=== PATIENT | female | born 1945 | race Two or more races ===

== ENCOUNTER 2024-01-29 11:10 | Emergency (ER) | payer MEDICARE, MEDICAID, SELFPAY ==
[2024-01-29 11:11] VITALS: BMI 29.7
[2024-01-29 11:14] VITALS: BP 117/71; PULSE 81; RESP 19; TEMP 37; O2SAT 98
--- NOTE | 2024-01-29 11:44 | EKG_ITS ---
[facility] Test Date: 2024-01-29 Pat Name: MICKEY BALLARD Department: Room: - Gender: Female Occasional Babysitter: : 1945 Requested By: Anjum Smith (DIRECTOR OF CORPORATE REAL ESTATE) Order Number: [id number] Reading MD: Anjum Smith (DIRECTOR OF CORPORATE REAL ESTATE) Measurements Intervals [place] Rate: 78 P: 35 FL: 149 QRS: -79 QRSD: 95 T: 15 QT: 380 QTc: 435 Interpretive Statements SINUS RHYTHM LEFT ANTERIOR FASCICULAR BLOCK [QRS AXIS <= -45, QR IN I, RS IN II] POSSIBLE ANTERIOR MYOCARDIAL INFARCTION , PROBABLY OLD [30 ms Q WAVE IN V3/V4, OR R < 0.2 mV IN V4] Compared to ECG 06/18/2022 19:19:27 Left anterior fascicular block now present Myocardial infarct finding now present Sinus tachycardia no longer present Indeterminate axis no longer present /store/S0/[id number].pdf
--- NOTE | 2024-01-29 11:44 | XR_ITS ---
Examination: CT cervical spine without contrast 2-D sagittal reconstructions 2-D coronal reconstructions 3-D reconstructions. Exam date and time:January 29, 2024 1259 hours INDICATIONS: Patient fell 3 days ago with injury to the neck, followed by right-sided neck pain CTDI:vol (mGy) 8.08 DLP: (mGycm) 185 Technique: Multiple 2 mm axial sections of the cervical spine have been obtained. The coronal and sagittal reconstructions have been obtained. 3-D reconstructions have been obtained. Low dose protocols were performed. One or more of the following dose reduction techniques were used; automated exposure control, adjustment of the mA and/or KV according to patient size, use of iterative reconstruction technique. Findings: Axial sections demonstrate intact base of the skull. C1 exhibit satisfactory relationship to the odontoid. No acute cervical vertebral body fracture seen. Alignment posterior spinous processes satisfactory. Impression: No acute cervical fracture.
--- NOTE | 2024-01-29 11:44 | XR_ITS ---
Examination: CT brain head without contrast. 2-D sagittal coronal reconstructions Date and time of exam:January 29, 2024 1259 hours INDICATIONS: Patient fell 3 days ago with injury to the head, head pain CTDI: vol (mGy):46.9 DLP: (mGycm):1000 Technique: Multiple CT axial sections of the brain have been obtained, 5 mm slice thickness. Contrast has not been administered. 2-D sagittal, coronal reconstructions have been obtained Low dose protocols were performed. One or more of the following dose reduction techniques were used; automated exposure control, adjustment of the mA and/or KV according to patient size, use of iterative reconstruction technique. Findings: No significant ventricular enlargement. Intra-axial or extra-axial hemorrhage density is not seen. No mass effect or midline shift Basal cisterns are not remarkable. Fourth ventricle is midline. Cranial vault intact. Impression: Negative for acute hemorrhage, mass effect or midline shift
--- NOTE | 2024-01-29 11:45 | PD.EDRME ---
Rapid Medical Screening Exam RME Arrival date/time: 01/29/24 11:10 79-year-old female presents to the emergency department complaints of dizziness head and neck pain Chief Complaint: Neuro Symptoms/Deficit
[2024-01-29 12:03] LABS: Basophils # (Auto) 0.1 Thou/mm3 (0.0-0.2); Basophils % (Auto) 1 % (0-2.5); Eosinophils % (Auto) 0 % (0-10); Hematocrit 38.9 % (36.0-46.0); Hemoglobin 12.3 g/dL (12.0-16.0); Immature Granulocytes % (Auto) 0 % (0-0); Immature Granulocytes Auto 0.02 Thou/mm3 (0.00-0.00); Lymphocytes # (Auto) 1.7 Thou/mm3 (1.0-4.8); Lymphocytes % (Auto) 18 % (10-50); Mean Corpuscular HGB Conc 31.6 g/dl (31.0-37.0); Mean Corpuscular Hemoglobin 25.5 pg (25.0-35.0); Mean Corpuscular Volume 81 fL (80-100); Monocytes # (Auto) 0.6 Thou/mm3 (0.0-0.8); Monocytes % (Auto) 6 % (0-12); Neutrophils # (Auto) 7.1 Thou/mm3 (1.8-7.7); Neutrophils % (Auto) 75 % (37-80); Nucleated Red Blood Cell % 0 /100 WBC (0); Platelet Count 322 Thou/mm3 (140-440); RDW Standard Deviation 51.8 fL (36.4-46.3); Red Blood Count 4.82 Miln/mm3 (4.00-5.20); White Blood Count 9.5 Thou/mm3 (3.6-11.0)
[2024-01-29 12:19] LABS: INR 0.9 (0.9-1.3); Partial Thromboplastin Time 23.4 Seconds (22.0-36.0); Prothrombin Time 10.4 Seconds (9.0-12.2)
[2024-01-29 12:22] LABS: Alanine Aminotransferase 14 U/L (10-49); Albumin, Serum 4.2 gm/dL (3.4-4.8); Albumin/Globulin Ratio 1.4 (1.2-2.2); Alkaline Phosphatase 75 U/L (46-116); Anion Gap 12 (7-16); Aspartate Amino Transferase 15 U/L (0-34); BUN/Creatinine Ratio 29 Ratio (12-20); Bilirubin,Total 0.4 mg/dL (0.3-1.2); Blood Urea Nitrogen 23 mg/dL (9-23); Calcium 10.5 mg/dL (8.3-10.6); Calcium (Corrected) 10.5 mg/dL (8.5-10.1); Carbon Dioxide 20.1 mMol/L (20.0-31.0); Chloride 106 mMol/L (98-107); Creatinine (Component) 0.8 mg/dL (0.6-1.3); Globulin 2.9 gm/dL (2.3-3.5); Glucose 274 mg/dL (74-106); Magnesium 2.2 mg/dL (1.6-2.6); Osmolality,Calculated 289 (275-295); Potassium 4.4 mMol/L (3.4-5.1); Sodium 138 mMol/L (136-145); Total Protein 7.1 gm/dL (5.7-8.2); Troponin I < 0.002 ng/mL (0.0-0.045); eGFR > 60 See Note
[2024-01-29 12:32] LABS: B-Type Natriuretic Peptide 29 pg/mL (0-100)
[2024-01-29 12:39] LABS: Collection Type, Urine Clean Catch
[2024-01-29 12:55] LABS: Bilirubin,Urine Negative (Negative); Blood,Urine Negative (Negative); Budding Yeast,Urine Present; Clarity,Urine Clear (Clear/Hazy); Color,Urine Lt-Yellow (Lt Yel-Yel); Glucose, Urine 4+ (Negative); Hyphae Yeast Present; Ketones,Urine Negative (Negative); Leukocyte Esterase,Urine Negative (Negative); Nitrite,Urine Negative (Negative); Protein,Urine Negative (Neg - Trace); RBC,Urine 3 /hpf (0-3); Specific Gravity,Urine 1.031 (1.001-1.035); Squamous Epithelial Cell,Urine 1 /hpf (0-5); Urobilinogen,Urine Negative mg/dL (0.0-1.0); WBC,Urine 1 /hpf (0-5)
--- NOTE | 2024-01-29 16:22 | PD.EDADULT ---
ED General RME/HPI General Chief complaint: Neuro Symptoms/Deficit Stated complaint: RIGHT SIDE NECK PAIN, DIZZINESS S/P FALL ON SAT Time Seen by Provider: 01/29/24 16:19 Arrival date/time: 01/29/24 11:10 CC: Dizziness HPI ongoing for the past several days had a fall yesterday regarding her dizziness patient is not dizzy when she sits down but when she stands up she becomes lightheaded. Patient denies chest pain shortness of breath or difficulty breathing. RME / HPI RME / HPI narrative: 01/29/24 11:10 79-year-old female presents to the emergency department complaints of dizziness head and neck pain Related Data Previous Rx's ?Medication ?Instructions ?Recorded sulfamethoxazole 800 1 tab PO BID #14 tabs 05/12/23 mg-trimethoprim 160 mg tablet (Bactrim DS) meclizine 25 mg tablet 25 mg PO QDAY PRN dizziness #10 01/29/24 tabs Allergies Allergy/AdvReac Type Severity Reaction Status Date / Time No Known Allergies Allergy Verified 01/29/24 11:14 Review of Systems Review of Systems Narrative Review of Systems: GEN: No fever, no chills, no weight loss EYES: No discharge, no visual changes, no pain HEENT: No ear pain, no congestion, no sore throat PULM: No shortness of breath, no cough, no congestion CV: No chest pain, no dyspnea on exertion, no palpitations GI: No nausea, no vomiting, no diarrhea, no pain, no constipation : No frequency, no urgency, no dysuria MUSC/SKEL: No joint pain, no back pain SKIN: No rash PSYCH: No hallucinations, no depression HEME/LYMPH: No easy bleeding or bruising tendencies NEURO: No weakness, no headache,+ dizziness Past Medical History Past Medical History CARDIAC: Positive Cardiac Disorders and Hypertension; Negative Congestive Heart Failure RESPIRATORY: Negative Chronic Obstructive Pulmonary Disease (COPD) GENITOURINARY: Negative Renal Disease ENDOCRINE: Positive Endocrine Disorders and Diabetes Mellitus Type 2; Negative Diabetes Mellitus Type 1 Social History SMOKING STATUS: Never smoker ED Exam Narrative Physical exam: [General: Not in any acute distress Head normocephalic HEENT: Within acceptable limits Neck is supple nontender Chest equal chest rise nontender to palpation Respiratory: Clear to auscultation no wheezes crackles or rubs CV: Rate rhythm is regular no murmurs rubs or clicks Abdomen is distended secondary to body habitus soft nontender no masses positive bowel sounds all 4 quadrants Back: No CVA tenderness no spinous process tenderness from cervical spine thoracic and lumbar spine Skin: Intact no petechiae rash induration ulceration or crepitus Extremities: Moving all extremity against resistance cap refill less than 2 seconds neurosensory intact Neuro: Awake alert oriented x3 Glascow coma 15 no focal deficits] Course Quality Measures none Orders Category Date Time Status EKG (ED ONLY) *Do not use* NOW Care 01/29/24 11:44 Completed Orthostatic Vitals NOW Care 01/29/24 16:[address] cervical spine wo con Stat Exams 01/29/24 11:[address] head/brain wo con Stat Exams 01/29/24 11:44 Completed EKG (ED Only) Stat Exams 01/29/24 11:44 Draft B-Type Natriuretic Peptide Stat Lab 01/29/24 11:50 Completed CBC Stat Lab 01/29/24 11:50 Completed Comprehensive Metabolic Panel Stat Lab 01/29/24 11:50 Completed Magnesium Stat Lab 01/29/24 11:50 Completed Partial Thromboplastin Time Stat Lab 01/29/24 11:50 Completed Prothrombin Time with INR Stat Lab 01/29/24 11:50 Completed Troponin I Stat Lab 01/29/24 11:50 Completed Urinalysis Stat Lab 01/29/24 12:27 Completed Vital Signs Vital signs: Vital Signs Temperature 98.6 F 01/29/24 11:14 Pulse Rate 81 01/29/24 11:14 Respiratory Rate 19 01/29/24 11:14 Blood Pressure 117/71 01/29/24 11:14 Pulse Oximetry (%) 98 01/29/24 11:14 Oxygen Delivery Method Room Air 01/29/24 11:14 [facility] Patient data External records reviewed:: [facility] previous records Clinical information provided by:: patient and family Social determinants that could affect healthcare access:: none Patient has the following chronic illnesses:: None How is presenting disease/condition affected by chronic disease/condition?: uneffected by Evaluation data The following diagnostics were reviewed and interpreted by me:: lab results, radiology exam(s) and EKG tracing(s) Lab and/or radiology exams considered but not ordered:: EKG performed at 1153 shows a ventricular rate of 78 MD interval 149 QRS of 95 QTc of 414 sinus rhythm CBC shows no acute leukocytosis anemia thrombocytopenia Coags within acceptable limits CMP shows elevated glucose of 274 no other electrolyte imbalances renal impairment transaminitis or T. bili elevation. Urine is positive for yeast but negative for any acute yeast infection Troponin is negative Orthostatics are negative. Interpretation Summary: At the time of exam the patient is not dizzy I do not feel this is vertigo. Patient be discharged home to follow-up with primary care provider she is advised to follow-up with her PCP Go over all of her primary care medications to see if there is any action causing lightheadedness or dizziness. Medications Medications considered but not ordered:: None Medication administrations:: None Consultations Consultation(s) initiated? (list below): No Diagnosis Differential Diagnosis ED Complaint MDM: Dehydration hypotension vertigo Most likely diagnosis given after review of the tests above:: Positional vertigo Admission Indicated Admission indicated?: not indicated Explain why admission is indicated or not indicated:: Stable for outpatient follow-up Admission Request Was there a request for admission?: No Disposition Plan Disposition Plan: Discharge Discharge Attestation Discharge Attestation: The patient and all family members were given an opportunity to ask questions and understood the discharge instructions. Discharge instructions specifically effects, indications for sooner follow up or return to the emergency department, and the expected course of current diagnosis. Patient condition: Stable Medical Decision Making Differential Diagnosis Differential Diagnosis: Dehydration hypotension vertigo Lab Data 01/29/24 11:50 01/29/24 11:50 Labs: Lab Results 01/29/24 01/29/24 Range/Units 11:50 12:27 WBC 9.5 (3.6-11.0) Thou/mm3 RBC 4.82 (4.00-5.20) Miln/mm3 Hgb 12.3 (12.0-16.0) g/dL Hct 38.9 (36.0-46.0) % MCV 81 (80-100) fL MCH 25.5 (25.0-35.0) pg MCHC 31.6 (31.0-37.0) g/dl RDW Std Deviation 51.8 H (36.4-46.3) fL Plt Count 322 (140-440) Thou/mm3 Neut % (Auto) 75 (37-80) % Lymph % (Auto) 18 (10-50) % [place] % (Auto) 6 (0-12) % Eos % (Auto) 0 (0-10) % Baso % (Auto) 1 (0-2.5) % Neut # (Auto) 7.1 (1.8-7.7) Thou/mm3 Lymph # (Auto) 1.7 (1.0-4.8) Thou/mm3 [place] # (Auto) 0.6 (0.0-0.8) Thou/mm3 Eos # (Auto) 0.0 (0.0-0.5) Thou/mm3 Baso # (Auto) 0.1 (0.0-0.2) Thou/mm3 Immature Gran # (Auto) 0.02 H (0.00-0.00) Thou/mm3 Absolute Nucleated RBC 0.00 (0.00-0.00) Thou/mm3 Immature Gran % 0 (0-0) % Nucleated RBC % 0 (0) /100 WBC PT 10.4 (9.0-12.2) Seconds INR 0.9 (0.9-1.3) APTT 23.4 (22.0-36.0) Seconds Sodium 138 (136-145) mMol/L Potassium 4.4 (3.4-5.1) mMol/L Chloride 106 (98-107) mMol/L Carbon Dioxide 20.1 (20.0-31.0) mMol/L Anion Gap 12 (7-16) BUN 23 (9-23) mg/dL Creatinine 0.8 (0.6-1.3) mg/dL Estim Creat Clear Calc 51.0 L (>60) mL/min eGFR > 60 (60 - ) See Note BUN/Creatinine Ratio 29 H (12-20) Ratio Glucose 274 H (74-106) mg/dL Calculated Osmolality 289 (275-295) Calcium 10.5 (8.3-10.6) mg/dL Corrected Calcium 10.5 H (8.5-10.1) mg/dL Magnesium 2.2 (1.6-2.6) mg/dL Total Bilirubin 0.4 (0.3-1.2) mg/dL AST 15 (0-34) U/L ALT 14 (10-49) U/L Alkaline Phosphatase 75 (46-116) U/L Troponin I < 0.002 (0.0-0.045) ng/mL B-Natriuretic Peptide 29 (0-100) pg/mL Total Protein 7.1 (5.7-8.2) gm/dL Albumin 4.2 (3.4-4.8) gm/dL Globulin 2.9 (2.3-3.5) gm/dL Albumin/Globulin Ratio 1.4 (1.2-2.2) Ur Collection Type Clean Catch Urine Color Lt-Yellow (Lt Yel-Yel) Urine Clarity Clear (Clear/Hazy) Urine pH 6.0 (5.0-7.0) Ur Specific [place] 1.031 (1.001-1.035) Urine Protein Negative (Neg - Trace) Urine Glucose (UA) 4+ A (Negative) Urine Ketones Negative (Negative) Urine Blood Negative (Negative) Urine Nitrite Negative (Negative) Urine Bilirubin Negative (Negative) Urine Urobilinogen (Auto) Negative (0.0-1.0) mg/dL Ur Leukocyte Esterase Negative (Negative) Urine RBC 3 (0-3) /hpf Urine WBC 1 (0-5) /hpf Ur Squamous Epith Cells 1 (0-5) /hpf Urine Bacteria None (None) Ur Yeast w Hyphae Present A (None) Urine Yeast (Budding) Present A (None) Discharge Plan Plan Patient Disposition: HOME (Self Care) Patient condition on transfer: Stable Prescriptions/Referrals Prescriptions/Med Rec: New meclizine 25 mg tablet 25 mg PO QDAY PRN (Reason: dizziness) Qty: 10 0RF No Action sulfamethoxazole-trimethoprim [Bactrim DS] 800-160 mg tablet 1 tab PO BID Qty: 14 0RF Referrals: Shivam Tillman [Primary Care Provider] - In 1 week Problem List Clinical Impression: Vertigo Patient/Caregiver Discharge Instructions Education Materials: Vertigo Staying Safe, ED Dizziness, Uncertain Cause Additional Instructions: I wrote you for some meclizine to see if this will help if not follow-up with the primary care doctor or return the emergency room for reevaluation. Print Language: Greek Stand Alone Forms: Astr[employer] Award Info., Patient Portal Info Letter, Work/School Release PA/PAPER FOLDER Supervising Physician PA/PAPER FOLDER Supervising Physician: Christian Lorenz ENP
[2024-01-29 16:29] VITALS: BP 161/82; BP 162/80; BP 172/85; PULSE 86; PULSE 87; PULSE 90
== END 2024-01-29 17:09 | disposition home or self-care (01) ==
PROVIDERS: Nurse Practitioner Primary Care; Emergency Provider Emergency Medicine; PCP Physician Assistant
DX: S19.9XXA Unspecified injury of neck, initial encounter (principal); S09.90XA Unspecified injury of head, initial encounter; R42 Dizziness and giddiness; I44.4 Left anterior fascicular block; I10 Essential (primary) hypertension; W19.XXXA Unspecified fall, initial encounter
CPT/HCPCS: 36415; 70450; 72125; 80053; 81001; 83735; 83880; 84484; 85025; 85610; 85730; 93005; 99284